=== PATIENT | male | born 1990 | race Caucasian/White ===

== ENCOUNTER 2018-10-06 19:45 | Emergency (ER) | payer OTHER, BC ==
[~2018-10-06] VITALS: Ht 193 cm; Wt 130.6 kg
[2018-10-06] MEDS ORDERED: IV NORMAL SALINE 1000ML BAG 1,000 ML IV SCH (20:02)
[2018-10-06] MEDS ORDERED: ONDANSETRON PF 4 MG/2 ML VIAL. IV ONE (20:15)
[2018-10-06] MEDS ORDERED: CONTRAST GIVEN. MC PRN ×2 (20:45)
[2018-10-06] MEDS ORDERED: IOHEXOL 300 MG/ML 100ML VIAL. IV ONE (20:45)
[2018-10-06 20:46] LABS: BASO # 0.1 x10^3/uL (0.0-0.2); BASO % 0 % (0-3); EOS # 0.1 x10^3/uL (0.0-0.7); EOS % 0 % (0-3); HEMATOCRIT 46.6 % (39.0-53.0); HEMOGLOBIN 15.7 g/dL (13.0-17.5); LYMPH # 1.4 x10^3/uL (1.0-4.8); LYMPH % 8 % (24-48); MEAN CORPUSCULAR HEMOGLOBIN 28 pg (25-35); MEAN CORPUSCULAR HGB CONC 34 g/dL (31-37); MEAN CORPUSCULAR VOLUME 82 fL (79-100); MONO # 0.9 x10^3/uL (0.0-1.1); MONO % 5 % (0-9); NEUT # 14.3 x10^3uL (1.8-7.7); NEUT % 86 % (31-73); PLATELET COUNT 268 x10^3/uL (140-400); RED BLOOD COUNT 5.71 x10^6/uL (4.30-5.70); RED CELL DISTRIBUTION WIDTH 13.8 % (11.5-14.5); WHITE BLOOD COUNT 16.7 x10^3/uL (4.0-11.0)
[2018-10-06 20:55] LABS: CALCIUM 9.6 mg/dL (8.5-10.1); CREATININE 1.3 mg/dL (0.7-1.3); GFR 65.3; POTASSIUM 3.9 mmol/L (3.5-5.1)
[2018-10-06] MEDS: fentaNYL PF VIAL 100 MCG/2 ML VIAL IV PRN ×2 (20:55→22:25)
[2018-10-06 21:01] LABS: ALBUMIN 4.3 g/dL (3.4-5.0); ALBUMIN/GLOBULIN RATIO 1.1 (1.0-1.7); TOTAL BILIRUBIN 0.7 mg/dL (0.2-1.0); TOTAL PROTEIN 8.2 g/dL (6.4-8.2)
[2018-10-06 21:05] LABS: % BANDS 1 % (0-9); % EOS 1 % (0-5); % LYMPHS 14 % (24-48); % MONOS 7 % (0-10); % SEGS 77 % (35-66); PLT ESTIMATE ADEQUATE (ADEQUATE)
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
[2018-10-06] MEDS ORDERED: LIDOCAINE 2% VISCOUS 15 ML SOLUTION. MM ONE (22:30)
[2018-10-06] MEDS ORDERED: IV NORMAL SALINE 1000ML BAG 1,000 ML IV ONE (23:00)
[2018-10-07 00:09] VITALS: BP 166/76
[2018-10-07] MEDS ORDERED: LIDO15SO2 TOP (00:39)
[2018-10-07] MEDS ORDERED: HYDR-2769 PO (00:39)
[2018-10-07] MEDS ORDERED: KETO10TA PO (00:39)
[2018-10-07] MEDS ORDERED: ORPH100T PO (00:39)
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
--- NOTE | 2018-10-07 06:59 | EKG ---
[facility] [address] [place] [address] Test Date: 2018-10-06 Test Time: 20:23:58 Pat Name: AMANDA RENDON Department: Room: Gender: M [employer]er: : [id number] Requested By: LUCAS MEJIA Order Number: [id number] Reading MD: Tyree Mccabe MD Measurements Intervals [place] Rate: 81 P: 42 SC: 172 QRS: 10 QRSD: 84 T: 12 QT: 360 QTc: 424 Interpretive Statements SINUS RHYTHM Electronically Signed On 10-08-2018 16:37:12 CDT by Tyree Mccabe MD
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
== END 2018-10-07 00:43 | disposition home or self-care (01) ==
LOC: ER 19:45
DX: S13.8XXA Sprain of joints and ligaments of other parts of neck, initial encounter (principal); S50.311A Abrasion of right elbow, initial encounter; S80.211A Abrasion, right knee, initial encounter; S50.312A Abrasion of left elbow, initial encounter; F41.9 Anxiety disorder, unspecified; J45.909 Unspecified asthma, uncomplicated; F90.9 Attention-deficit hyperactivity disorder, unspecified type; V28.9XXA Unspecified motorcycle rider injured in noncollision transport accident in traffic accident, initial encounter; Y93.89 Activity, other specified; Y92.410 Unspecified street and highway as the place of occurrence of the external cause; Y99.8 Other external cause status
CPT/HCPCS: 36415; 70450; 71260; 72125; 73030; 73080; 73562; 74177; 80053; 83605; 83690; 85007; 85025; 93005; 96374; 96375; 96376; 99284; J2405; J3010; J7030; Q9967